=== PATIENT | female | born 1965 | race Caucasian/White ===

== ENCOUNTER 2016-06-22 18:11 | Emergency (ER) | payer MEDICAID ==
--- NOTE | 2016-06-22 19:20 | CPEKG ---
Heart Rate: 65 RR Interval: 923 P-R Interval: 140 QRSD Interval: 76 QT Interval: 396 QTC Interval: 412 P [place]: 11 QRS [place]: 33 T Wave [place]: 29 EKG Severity - NORMAL ECG - EKG Impression: SINUS RHYTHM Electronically Signed By: Braulio Franco 22-Jun-2016 21:18:04
--- NOTE | 2016-06-22 21:02 | EDPHY ---
H & P Stated Complaint: dizzy +sob Time Seen by Provider: 06/22/16 19:55 HPI/ROS: CHIEF COMPLAINT: shortness of breath, lightheaded, chills HISTORY OF PRESENT ILLNESS: 51-year-old female presents emergency department complaining of a 3-day history of fatigue, subjective fevers, chills, feeling dehydrated. Patient reports feeling lightheaded upon standing. She denies nausea, vomiting, abdominal pain or diarrhea. Patient states this morning she woke up with nasal congestion, left eye stuck shut with discharge. Patient reports a mild cough. She feels like the inside of her chest is burning. Patient smokes cigarettes daily, denies drug and alcohol use. She has chronic pain as uses a fentanyl patch, Percocet and Neurontin daily. REVIEW OF SYSTEMS: A comprehensive 10 point review of systems is otherwise negative aside from elements mentioned in the history of present illness. Source: Patient Exam Limitations: No limitations - Personal History LMP (Females 10-55): Hysterectomy Current Tetanus/Diphtheria Vaccine: Unsure Current Tetanus Diphtheria and Acellular Pertussis (TDAP): Unsure Tetanus Vaccine Date: unknown - Medical/Surgical History Hx Asthma: No Hx Chronic Respiratory Disease: No Hx Diabetes: No Hx Cardiac Disease: No Hx Renal Disease: No Hx Cirrhosis: No Hx Alcoholism: No Hx HIV/AIDS: No Hx Splenectomy or Spleen Trauma: No Other PMH: TUBAL, HERNIA, HYSTERECTOMY, HTN - Family History Significant Family History: No pertinent family hx - Social History Smoking Status: Current every day smoker - Physical Exam Exam: Physical Exam Gen: Alert and Oriented, NAD HEENT: PERRL, dry mucous membranes. Posterior pharynx with mild erythema, no exudate, uvula midline, no tonsillar swelling, submental spaces soft. Is bilateral TMs with mild erythema, nasal turbinates with swelling and erythema, left eye with conjunctival erythema, no drainage NECK: no meningismus, no anterior cervical lymphadenopathy CV: regular rate and regular rhythm PULM: CTAB, no wheezes ABDOMEN: soft, non tender to palpation, BS present BACK: No CVA tenderness NEURO: Neurologically grossly intact EXTREMITIES: normal appearing SKIN: no rash or break in skin on exposed skin PSYCH: answers questions appropriately. Constitutional: Initial Vital Signs Temperature (C) 37 C 06/22/16 18:17 Heart Rate 76 06/22/16 18:17 Respiratory Rate 16 06/22/16 18:17 Blood Pressure 151/101 H 06/22/16 18:17 O2 Sat (%) 96 06/22/16 18:17 O2 Delivery Mode Room Air Allergies/Adverse Reactions: No Known Allergies Allergy (Unverified 09/03/10 17:14) Home Medications: Medication Instructions Recorded Metoprolol Succinate Xr [Toprol Xl 25 mg PO DAILY #10 tab.sr 09/12/14 25 mg (*)] Medical Decision Making - Diagnostics EKG Interpretation: EKG shows normal sinus rhythm, normal rate, normal axis, good R-wave progression , no ST or T-wave abnormality. Imaging: Chest x-ray independently reviewed by me- Impression: Prominence of perihilar interstitial markings and peribronchial cuffing. Findings are nonspecific but can be seen with bronchitis, reactive airway disease, or viral process. Dictated By: Joel Moraes MD ED Course/Re-evaluation: IV established, CBC, chemistry panel, D-dimer, chest x-ray ordered. The patient was given 2 L of normal saline. Chest x-ray was obtained. EKG done. Patient is nontoxic on exam, afebrile, lungs diminished. CBC, chemistry panel, D-dimer all unremarkable, chest x-ray shows peribronchial thickening. Patient is ambulatory to the bathroom after receiving 2 L of normal saline and reports no lightheadedness or dizziness. She will be discharged home with an albuterol inhaler, recommended smoking cessation, plenty of fluids, rest, humidifier at night, saline nasal rinses. She is to follow up with her primary care doctor in 2-3 days for re-evaluation, she is to return to the emergency department for worsening symptoms, chest pain, any other questions or concerns. Differential Diagnosis: Diagnosis considered but not limited to viral syndrome, bronchitis, pneumonia, URI - Data Points Laboratory Results: Laboratory Results 06/22/16 21:40 06/22/16 21:40 06/22/16 21:40 WBC 10.58 H 10^3/uL (3.80-9.50) RBC 4.83 10^6/uL (4.18-5.33) Hgb 15.3 g/dL (12.6-16.3) Hct 44.4 % (38.0-47.0) MCV 91.9 fL (81.5-99.8) MCH 31.7 pg (27.9-34.1) MCHC 34.5 g/dL (32.4-36.7) RDW 13.3 % (11.5-15.2) Plt Count 279 10^3/uL (150-400) MPV 9.3 fL (8.7-11.7) Neut % (Auto) 54.3 % (39.3-74.2) Lymph % (Auto) 31.2 % (15.0-45.0) [place] % (Auto) 10.4 % (4.5-13.0) Eos % (Auto) 3.3 % (0.6-7.6) Baso % (Auto) 0.5 % (0.3-1.7) Nucleat RBC Rel Count 0.0 % (0.0-0.2) Absolute Neuts (auto) 5.75 10^3/uL (1.70-6.50) Absolute Lymphs (auto) 3.30 H 10^3/uL (1.00-3.00) Absolute Monos (auto) 1.10 H 10^3/uL (0.30-0.80) Absolute Eos (auto) 0.35 10^3/uL (0.03-0.40) Absolute Basos (auto) 0.05 10^3/uL (0.02-0.10) Absolute Nucleated RBC 0.00 10^3/uL (0-0.01) Immature Gran % 0.3 % (0.0-1.1) Immature Gran # 0.03 10^3/uL (0.00-0.10) D-Dimer 0.35 ug/mLFEU (0.00-0.50) Sodium 140 mEq/L (134-144) Potassium 4.6 mEq/L (3.5-5.2) Chloride 105 mEq/L (97-110) Carbon Dioxide 23 mEq/l (22-31) Anion Gap 12 mEq/L (8-16) BUN 13 mg/dL (7-23) Creatinine 0.8 mg/dL (0.6-1.0) Estimated GFR > 60 Glucose 79 mg/dL (70-100) Calcium 9.4 mg/dL (8.5-10.4) Medications Given: Discontinued Medications Sodium Chloride (Ns) 1,000 mls @ 0 mls/hr IV ONCE ONE PRN Reason: Wide Open Stop: 06/22/16 21:13 Last Admin: 06/22/16 22:31 Dose: 1,000 mls Sodium Chloride (Ns) 1,000 mls @ 0 mls/hr IV ONCE ONE PRN Reason: Wide Open Stop: 06/22/16 21:13 Last Admin: 06/22/16 21:28 Dose: 1,000 mls Departure - Departure Disposition: Home, Routine, Self-Care Clinical Impression: Viral syndrome Acute bronchitis Qualifiers: Qualifier Code: (J20.9) Acute bronchitis, unspecified Condition: Good Instructions: Viral Syndrome (ED), Acute Bronchitis (ED) Additional Instructions: Drink plenty of fluids, alternate Tylenol with ibuprofen for fevers, body aches , humidifier at night. Use 2 puffs of the albuterol inhaler every 4-6 hours. Follow-up with your primary care doctor in the next 24-48 hours for re- evaluation, return to the emergency department for worsening symptoms. Referrals: Faith Francois MD [Primary Care Provider] - As per Instructions
[2016-06-22] MEDS ORDERED: NS 1,000 ML IV ONE ×2 (21:12)
[2016-06-22 21:58] LABS: % IMMATURE GRANULYOCYTES 0.3 % (0.0-1.1); ABSOLUTE IMMATURE GRANULOCYTES 0.03 10^3/uL (0.00-0.10); ADD DIFF? NO; ADD MORPH? NO; ADD SCAN? NO; ATYPICAL LYMPHOCYTE FLAG 20 (0-99); FRAGMENT RBC FLAG 0 (0-99); HEMATOCRIT 44.4 % (38.0-47.0); HEMOGLOBIN 15.3 g/dL (12.6-16.3); LEFT SHIFT FLG 0 (0-99); LIPEMIA HEMOLYSIS FLAG 90 (0-99); MEAN CELL HEMOGLOBIN 31.7 pg (27.9-34.1); MEAN CELL HEMOGLOBIN CONCENTR. 34.5 g/dL (32.4-36.7); MEAN CELL VOLUME 91.9 fL (81.5-99.8); MEAN PLATELET VOLUME 9.3 fL (8.7-11.7); PLATELET CLUMPS FLAG 0 (0-99); PLATELET COUNT 279 10^3/uL (150-400); RED BLOOD CELL COUNT 4.83 10^6/uL (4.18-5.33); RED CELL DISTRIBUTION WIDTH 13.3 % (11.5-15.2)
[2016-06-22 22:03] VITALS: TEMP 98.2
[2016-06-22 22:43] LABS: ANION GAP 12 mEq/L (8-16); CALCIUM 9.4 mg/dL (8.5-10.4); CARBON DIOXIDE 23 mEq/l (22-31); CHLORIDE 105 mEq/L (97-110); CREATININE 0.8 mg/dL (0.6-1.0); GLOMERULAR FILTRATION RATE > 60; GLUCOSE 79 mg/dL (70-100); POTASSIUM 4.6 mEq/L (3.5-5.2); SODIUM 140 mEq/L (134-144)
--- NOTE | 2016-06-22 22:45 | DX ---
PA and Lateral Chest X-Ray 6 hours History: Chest pain with nausea, and fatigue, and dizziness. Findings: Heart size and pulmonary vasculature are normal. There is peribronchial cuffing seen in t he perihilar region and prominence of perihilar interstitial markings. There are no peripheral infilt rates or effusions. Osseous structures are intact. Impression: Prominence of perihilar interstitial markings and peribronchial cuffing. Findings are non specific but can be seen with bronchitis, reactive airway disease, or viral process.
[2016-06-22 23:43] VITALS: BP 134/105; PULSE 70; RESP 18; O2SAT 95
== END 2016-06-22 23:43 | disposition home or self-care (01) ==
DX: J20.9 Acute bronchitis, unspecified (principal); B34.9 Viral infection, unspecified; F17.200 Nicotine dependence, unspecified, uncomplicated; I10 Essential (primary) hypertension

== ENCOUNTER 2016-08-17 14:01 | Outpatient (CLI) | payer MEDICAID ==
[2016-08-17] MEDS ORDERED: NALOXONE HCL 0.4 MG/ML INJ ONE (15:03)
[2016-08-17] MEDS ORDERED: FLUMAZENIL 0.5 MG/5 ML MDV IVP ONE (15:03)
[2016-08-17] MEDS ORDERED: MIDAZOLAM 2 MG/2 ML VIAL ONE (15:04)
[2016-08-17] MEDS ORDERED: fentaNYL 100 MCG/2 ML INJ ONE (15:04)
== END 2016-08-17 16:30 | disposition home health service (06) ==
LOC: FIMAGING 14:01
PROVIDERS: ATTEND Registered Nurse
DX: M99.71 Connective tissue and disc stenosis of intervertebral foramina of cervical region (principal)
CPT/HCPCS: J2250; J2310; J3010

== ENCOUNTER 2016-11-09 13:48 | Outpatient (CLI) | payer MEDICAID ==
[2016-11-09] MEDS ORDERED: fentaNYL 100 MCG/2 ML INJ ONE ×2 (13:58→14:27)
[2016-11-09] MEDS ORDERED: FLUMAZENIL 0.5 MG/5 ML MDV IVP ONE (13:58)
[2016-11-09] MEDS ORDERED: NALOXONE HCL 0.4 MG/ML INJ ONE (13:58)
[2016-11-09] MEDS ORDERED: MIDAZOLAM 2 MG/2 ML VIAL ONE ×2 (13:58→14:27)
[2016-11-09] MEDS ORDERED: NS 1,000 ML IV SCH (14:00)
== END 2016-11-09 17:30 | disposition home or self-care (01) ==
LOC: FIMAGING 13:48
DX: N28.9 Disorder of kidney and ureter, unspecified (principal); M51.26 Other intervertebral disc displacement, lumbar region; M99.73 Connective tissue and disc stenosis of intervertebral foramina of lumbar region; M46.1 Sacroiliitis, not elsewhere classified; G57.02 Lesion of sciatic nerve, left lower limb; M53.3 Sacrococcygeal disorders, not elsewhere classified
CPT/HCPCS: J2250; J2310; J3010

== ENCOUNTER → 2016-12-09 | Outpatient (CLI) | payer MEDICAID | LOC: FIMAGING 09:17 | PROVIDERS: ATTEND Internal Medicine | DX: N28.1 Cyst of kidney, acquired (principal) ==

== ENCOUNTER → 2016-12-11 | Outpatient (CLI) | payer MEDICAID | LOC: FIMAGING 12:13 | PROVIDERS: ATTEND Internal Medicine | DX: Z12.31 Encounter for screening mammogram for malignant neoplasm of breast (principal) | CPT/HCPCS: G0202 ==

== ENCOUNTER 2017-06-03 11:37 | Outpatient (CLI) | payer MEDICAID ==
[2017-06-03] MEDS ORDERED: LIDOCAINE 2% 2 ML INJ ONE (12:00)
[2017-06-03] MEDS ORDERED: METOCLOPRAMIDE 1 MG/ML ONE (12:00)
[2017-06-03] MEDS ORDERED: METOCLOPRAMIDE 10 MG/2 ML VIAL IVP ONE (12:00)
[2017-06-03] MEDS ORDERED: GLYCOPYRROLATE 0.2 MG/1 ML VIAL ONE (12:00)
[2017-06-03] MEDS ORDERED: PROPOFOL/EMULSION 500 MG/50 ML BOTTLE IV ONE (12:50)
[2017-06-03] MEDS ORDERED: MIDAZOLAM 2 MG/2 ML VIAL ONE (12:50)
[2017-06-03] MEDS ORDERED: MIDAZOLAM 2 MG/2 ML VIAL IVP ONE (12:54)
--- NOTE | 2017-06-03 12:54 | PDANEPAE ---
ANE History of Present Illness Facial and left body numbness. Claustrophobia ANE Past Medical History - Cardiovascular History Hx Hypertension: Yes Hx Arrhythmias: No Hx Chest Pain: No Hx Coronary Artery / Peripheral Vascular Disease: No Hx CHF / Valvular Disease: No Hx Palpitations: No - Pulmonary History Hx COPD: No Hx Asthma/Reactive Airway Disease: No Hx Recent Upper Respiratory Infection: No Hx Oxygen in Use at Home: No Hx Sleep Apnea: Yes - Neurologic History Hx Cerebrovascular Accident: Yes Hx Seizures: No Hx Dementia: No Neurologic History Comment: TIA - Endocrine History Hx Diabetes: No - Renal History Hx Renal Disorders: Yes Renal History Comment: Chronic kidney infections and stones. - Liver History Hx Hepatic Disorders: No - Neurological & Psychiatric Hx Hx Neurological and Psychiatric Disorders: Yes Neurological / Psychiatric History Comment: Neuropathy Bilateral hands, legs, and feet. - Cancer History Hx Cancer: No - Congenital Disorder History Hx Congenital Disorders: No - GI History Hx Gastrointestinal Disorders: Yes Gastrointestinal History Comment: Heartburn - Other Health History Other Health History: Chronic pain left side entire body with weakness, left side face numbness - Chronic Pain History Chronic Pain: Yes (generalized-neck, shoulders, waist, left side) - Surgical History Prior Surgeries: tubal ligation; hernia repair; partial hysterectomy; Benign bladder tumor 03/2016; R Hand carple tunnel release 2 years ago, gallbladder surgery ANE Review of Systems Review of Systems: - Exercise capacity METS (RN): 3 METS ANE Patient History - Allergies Allergies/Adverse Reactions: Tetracyclic Antidepressants Allergy (Severe, Verified 06/02/17 16:55) Swelling/neck,face,throat antidepressants Allergy (Severe, Uncoded 06/02/17 16:55) Anaphylaxis - Home Medications Home Medications: Losartan Potassium 1 tab PO DAILY 08/11/16 [Last Taken Unknown] Albuterol PRN 06/02/17 [Last Taken Unknown] LYRICA 100 mg PO BID 06/02/17 [Last Taken Unknown] Oxycodone Ir (*) 20 mg PO TID PRN 06/02/17 [Last Taken Unknown] Oxycontin 20 mg PO BID 06/02/17 [Last Taken Unknown] - Smoking Hx Smoking Status: Current every day smoker - Family Anes Hx Family Hx Anesthesia Complications: None ANE Labs/Vital Signs - Vital Signs Height: 162.56 cm Weight: 81.647 kg ANE Physical Exam - Airway Neck exam: FROM Mallampati Score: Class 2 Mouth exam: normal dental/mouth exam - Pulmonary Pulmonary: no respiratory distress - Cardiovascular Cardiovascular: regular rate and rhythym - ASA Status ASA Status: II ANE Anesthesia Plan Anesthesia Plan: GA w LMA, MAC
[2017-06-03] MEDS ORDERED: NALOXONE HCL 0.4 MG/ML INJ IVP PRN ×2 (14:13)
--- NOTE | 2017-06-03 14:13 | POSTANESTH ---
Post Anesthetic Evaluation Cardiovascular Status: Normal, Stable Respiratory Status: Normal, Stable Level of Consciousness/Mental Status: Can Participate in Eval Pain Control: Adequate, Prn Tx Ordered Nausea/Vomiting Control: Adequate, Prn Tx Ordered Complications Possibly Related to Anesthesia: None Noted
[2017-06-03 14:32] VITALS: TEMP 97.7; O2SAT 94
[2017-06-03 14:41] VITALS: PULSE 74
[2017-06-03 14:42] VITALS: BP 107/73; RESP 17
== END 2017-06-03 14:55 | disposition home or self-care (01) ==
LOC: FIMAGING 11:37
PROVIDERS: ATTEND Psychiatry & Neurology Neurology
PROC: B030ZZZ Magnetic Resonance Imaging (MRI) of Brain (ICD-10-PCS; principal; 2017-06-03 13:00)
DX: R20.2 Paresthesia of skin (principal); G81.94 Hemiplegia, unspecified affecting left nondominant side
CPT/HCPCS: J2250; J2704; J2765